=== PATIENT | female | born 1950 | race Caucasian/White ===

== ENCOUNTER 2016-10-18 08:39 | Outpatient (CLI) | payer MEDICARE ==
[2016-10-18 15:51] LABS: TOTAL PROTEIN 6.7 g/dL (6.0-8.5)
== END 2016-10-18 08:40 ==
LOC: LAB 08:39
PROVIDERS: ATTEND Family Medicine
DX: E11.9 Type 2 diabetes mellitus without complications (principal); E78.00 Pure hypercholesterolemia, unspecified; I10 Essential (primary) hypertension
CPT/HCPCS: 36415; 80053; 80061; 83036

== ENCOUNTER 2017-01-11 13:35 | Outpatient (CLI) | payer MEDICARE, MEDICAID | END 2017-01-11 13:36 | LOC: CARD 13:35 | PROVIDERS: ATTEND Internal Medicine Cardiovascular Disease | DX: I25.10 Atherosclerotic heart disease of native coronary artery without angina pectoris (principal); E11.9 Type 2 diabetes mellitus without complications; E66.9 Obesity, unspecified; E78.5 Hyperlipidemia, unspecified; I10 Essential (primary) hypertension; F17.200 Nicotine dependence, unspecified, uncomplicated; G47.30 Sleep apnea, unspecified | CPT/HCPCS: G0463 ==

== ENCOUNTER 2017-04-20 11:31 | Outpatient (CLI) | payer MEDICARE ==
--- NOTE | 2017-04-20 14:43 | Diagnostic Imaging Report ---
RADHIKA CHAVEZ [facility] [address] [facility] [address] [address] Report Submission Date: Apr 20, 2017 12:07:26 PM CDT Patient Study Name: RUCHI CHASE Date: Apr 20, 2017 11:34:47 AM CDT Modality Type: CR Gender: F Description: SPINE : 50 Institution: [facility] Physician: RADHIKA CHAVEZ Examination: Plain film lumbar spine History: Back discomfort Findings: 5 views of the lumbar spine demonstrate normal height. No anterior compression. Mild listhesis of L4 on L5: 5%. L5/S1 disc space narrowing. Facet degenerative changes. No pars defect on oblique views. Atherosclerotic disease involving the abdominal aorta and iliac vessels. Impression: Degenerative changes and listhesis. No compression deformity. If patient is experiencing neurologic symptoms, consider obtaining MRI. Electronically signed on Apr 20, 2017 12:07:26 PM CDT by: Roland MADERA
== END 2017-04-20 11:40 ==
LOC: RAD 11:31
PROVIDERS: ATTEND Family Medicine
DX: G89.29 Other chronic pain (principal); M54.5 Low back pain
CPT/HCPCS: 72110

== ENCOUNTER 2017-07-26 09:12 | Outpatient (CLI) | payer MEDICARE | END 2017-07-26 09:13 | LOC: CARD 09:12 | PROVIDERS: ATTEND Internal Medicine Cardiovascular Disease | DX: I25.10 Atherosclerotic heart disease of native coronary artery without angina pectoris (principal); R07.9 Chest pain, unspecified; R05 Cough; E11.9 Type 2 diabetes mellitus without complications; E66.9 Obesity, unspecified; I10 Essential (primary) hypertension; E78.5 Hyperlipidemia, unspecified; Z72.0 Tobacco use; G47.30 Sleep apnea, unspecified | CPT/HCPCS: G0463 ==

== ENCOUNTER 2017-10-20 10:09 | Outpatient (CLI) | payer MEDICARE ==
[2017-10-20 11:04] LABS: eGFR (African) > 60; eGFR (Non-African) > 60
== END 2017-10-20 10:10 ==
LOC: LAB 10:09
PROVIDERS: ATTEND Family Medicine
DX: E78.00 Pure hypercholesterolemia, unspecified (principal); E11.9 Type 2 diabetes mellitus without complications; E87.6 Hypokalemia; I10 Essential (primary) hypertension
CPT/HCPCS: 36415; 80053; 80061; 83036

== ENCOUNTER 2018-03-07 10:38 | Outpatient (CLI) | payer MEDICARE ==
[2018-03-07] MEDS ORDERED: WATER FOR INJECTION,STERILE 100 ML VIAL IJ ONE (11:00)
[2018-03-07] MEDS ORDERED: Lidocaine 1% 5ml(IM or SUTURE)(PAIN CLINIC) ONE (11:00)
[2018-03-07] MEDS ORDERED: TRIAMCINOLONE ACETONID 40MG/ML VIAL ONE (11:00)
--- NOTE | 2018-03-10 14:57 | HISTORY AND PHYSICAL REPORT ---
REFERRING PHYSICIAN: Dr. Ke Hernández Dear Dr. Hernández: HISTORY OF PRESENT ILLNESS: I had the opportunity of seeing Joleen Alonso today as an outpatient at [facility]. As you are aware, this is a delightful 67-year-old white female with a greater than 5-year history of back and leg pain. She tells me the symptoms can be in either leg, but at this point, are worse on the right. She has symptoms of neurogenic claudication and spinal stenosis. She says that she has had nonsteroidal anti-inflammatory medication. She has had physical therapy in the past and has had a previous history of chiropractic manipulation. 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 She tells me that she has to bend over a shopping cart or she rides a motorized cart at the grocery store and that she cannot ambulate more than 50 feet without having to sit down because she feels that her feet and legs are not going to hold her up. PAST MEDICAL HISTORY: 1. History of vision problems. 2. Hearing loss. 3. Nose or sinus problems. 4. Depression. 5. Anxiety. 6. Frequent headaches. 7. Diabetes. 8. Thyroid disease. 9. Acid reflux. 10. Osteoarthritis. 11. Tremors. PAST SURGICAL HISTORY: 1. Hysterectomy. 2. Bladder sling. 3. Bilateral total knee replacements. 4. Cholecystectomy. CURRENT DAILY MEDICATIONS: 1. Potassium chloride 10 mEq t.i.d. 2. NovoLog per sliding scale. 3. Levemir 55 units at bedtime. 4. Citalopram 40 mg daily. 5. Levothyroxine 100 mcg daily. 6. ProAir inhaler 90 mcg p.r.n. 7. Glipizide 10 mg b.i.d. 8. Atorvastatin 80 mg at bedtime. 9. Atenolol/chlorthalidone 50/25 mg daily. 10. Isosorbide 30 mg daily. 11. Aspirin 81 mg daily. 12. Celebrex 200 mg daily. ALLERGIES: 1. Zithromax. 2. Paper tape. SOCIAL HISTORY: She is a current 9-awxl-fzw-day smoker. She drinks alcohol socially at approximately once per year. Denies reactional drugs. She is a since 1995. She has 2 children. She lives at home with her significant other. She completed some college. She is not currently employed. She is retired. She is disabled due to chronic knee pain. FAMILY HISTORY: Family history includes her father with a stroke. Mother with stroke, heart attack, and thyroid disease. REVIEW OF SYSTEMS: In the last month or so, she reports a weight gain, night sweats, sinus infection, swelling in hands and feet, a cough or cold, feeling depressed, feeling anxious, and headaches. Pain is worsened with lying down, standing, bending, walking, twisting, getting up in the morning or in any position for too long. Pain is improved with sitting. PHYSICAL EXAMINATION: Vital Signs: BP: 120/64, P: 70, R: 18, oxygen saturation is 96% on room air. General: The patient is well nourished, well developed, and in no apparent distress. Awake, alert, and oriented. HEENT: Pupils are equal, round, and reactive to light and accommodation. Extraocular movements intact. No facial droop. Neck: There is full range of motion of the cervical spine. No evidence of adenopathy. Thyroid is nontender, not enlarged. Carotids are without bruits. Chest: Clear to auscultation bilaterally. Normal chest excursion. Heart: Regular rate and rhythm without murmur. Abdomen: Benign. Normoactive bowel sounds. Motor/sensory: Intact in the upper and lower extremities. Moves all extremities freely. Extremities: Strength is 5/5 and equal in her lower extremities. Reflexes are 2+ and equal. Dorsiflexion and plantar flexion of the feet are intact. DIAGNOSTIC STUDIES: MRI dated 02-22-18 reveals multi-level spondylosis throughout the lumbar spine and lumbar spinal stenosis with lateral recess stenosis at L4-L5. She has a broad-based disc protrusion at L5-S1 resulting in neuroforaminal stenosis, worse on the left than on the right. Otherwise, the remainder of the canal does not appear to have any narrowing. ASSESSMENT: Symptoms of spinal stenosis and neurogenic claudication worse at L5-S1. PLAN: Plan for a lumbar epidural steroid injection today under fluoroscopic guidance. Dr. Hernández, thank you very much for allowing me to take part in the care of this nice lady. I appreciate the opportunity to take part in the care of your patients. cc: Dr. Ke Hernández MTDD
--- NOTE | 2018-03-10 15:05 | LESI WITH FLUORO ---
OPERATIVE PROCEDURE: Left L5-S1 epidural steroid injection with fluoroscopic guidance. DESCRIPTION OF PROCEDURE: The risks and benefits were discussed with the patient including the risk of infection, bleeding, nerve injury, and headache, as well as the risks of steroid exposure causing hyperglycemia, hypertension, osteoporosis, or increased infectious risks. The patient understood these risks and agreed to proceed. Consent was obtained prior to the procedure. The patient was placed in the prone position on the fluoroscopy table with a pillow underneath the abdomen to afford anterior flexion of the lumbar spine. The low back was cleaned and a sterile drape was applied. An epidural needle was advanced with normal saline loss of resistance technique and direct fluoroscopic guidance with a left paramedian approach at the L5-S1 level. On obtaining loss of resistance to normal saline, it was verified that there was no aspiration of CSF or blood. Furthermore, the needle tip location was verified with lateral and AP fluoroscopic views. Omnipaque 240 myelogram dye were injected through the epidural needle. The distribution of the dye was noted to be within the desired distribution within the lumbar epidural space. The medication was injected into the epidural space. The stylet was replaced in the needle and the needle was removed from the back. The patient tolerated the procedure well. The back was cleaned and a bandage was applied over the injection site. The patient was monitored for 20 minutes following the procedure. during this time the vital signs remained stable and the patient experienced no adverse sequelae. The patient was discharged in good condition. ASSESSMENT: Symptoms of spinal stenosis and neurogenic claudication worse at L5-S1. PLAN: Left L5-S1 epidural steroid injection with fluoroscopic guidance today. FOLLOWUP: Return to clinic if problems develop or worsen. cc: Dr. Ke MADERA
== END 2018-03-07 10:40 ==
LOC: OUT 10:38
PROVIDERS: ATTEND Anesthesiology Pain Medicine
DX: M48.062 Spinal stenosis, lumbar region with neurogenic claudication (principal)
CPT/HCPCS: J3301; Q9966; 62323; 99213; G0463

== ENCOUNTER 2018-07-04 08:43 | Outpatient (CLI) | payer MEDICARE ==
[~2018-07-04 08:43] MED LIST: 0.9 % SODIUM CHLORIDE PF 10 ML VIAL IJ ONE; LIDOCAINE HCL/PF 2% 100 MG/5 ML VIAL IJ ONE; TRIAMCINOLONE ACETONID 40MG/ML VIAL ONE
--- NOTE | 2018-07-05 09:58 | LESI WITH FLUORO ---
SUBJECTIVE: Mrs. Alonso follows up with return of low back pain. She had an epidural steroid injection placed in March and she had immediate 100% relief which lasted she said several weeks, but after a week, she had a fall from a step where she stepped off and said she hurt her back. She has had return of back pain, worse on the left than on the right. I re-examined her and reviewed her MRI and she has positive assisted extension and extension rotation findings. She has a positive straight leg raise on the left. She has subarticular stenosis at L4-L5 and otherwise, some spondylosis of the facet joints at L3-L4, L4-L5, and L5-S1. At this point, I have explained I would repeat the epidural steroid injection and follow her up and if her symptoms are not resolved, I would consider diagnostic facet medial branch blocks. OPERATIVE PROCEDURE: Left L5-S1 epidural steroid injection with fluoroscopic guidance. DESCRIPTION OF PROCEDURE: The risks and benefits were discussed with the patient including the risk of infection, bleeding, nerve injury, and headache, as well as the risks of steroid exposure causing hyperglycemia, hypertension, osteoporosis, or increased infectious risks. The patient understood these risks and agreed to proceed. Consent was obtained prior to the procedure. The patient was placed in the prone position on the fluoroscopy table with a pillow underneath the abdomen to afford anterior flexion of the lumbar spine. The low back was cleaned and a sterile drape was applied. An epidural needle was advanced with normal saline loss of resistance technique and direct fluoroscopic guidance with a left paramedian approach at the L5-S1 level. On obtaining loss of resistance to normal saline, it was verified that there was no aspiration of CSF or blood. Furthermore, the needle tip location was verified with lateral and AP fluoroscopic views. Omnipaque 240 myelogram dye was injected through the epidural needle. The distribution of the dye was noted to be within the desired distribution within the lumbar epidural space. The medication was injected into the epidural space. The stylet was replaced in the needle and the needle was removed from the back. The patient tolerated the procedure well. The back was cleaned and a bandage was applied over the injection site. The patient was monitored for 20 minutes following the procedure. during this time the vital signs remained stable and the patient experienced no adverse sequelae. The patient was discharged in good condition. ASSESSMENT: 1. Subarticular L4-L5 stenosis with left-sided radicular pain. 2. Lumbar spondylosis. PLAN: Left L5-S1 epidural steroid injection with fluoroscopic guidance today. FOLLOWUP: Return to clinic if problems develop or worsen. cc: Dr. Ke MADERA
== END 2018-07-04 08:45 ==
LOC: OUT 08:43
PROVIDERS: ATTEND Anesthesiology Pain Medicine
DX: M48.061 Spinal stenosis, lumbar region without neurogenic claudication (principal); M47.896 Other spondylosis, lumbar region; M54.5 Low back pain
CPT/HCPCS: J2001; J3301; 62323; 99213; G0463

== ENCOUNTER 2018-07-26 13:36 | Outpatient (CLI) | payer MEDICARE ==
--- NOTE | 2018-08-01 12:18 | OP Clinic Progress Note ---
REASON FOR VISIT: This pleasant 67-year-old lady is seen with an ulcer and a sore area on the right side of her tongue on the lateral aspect [id number]. This is an ulcerated area at the level of the mandibular 2nd molar. That site has a very sharp edge to it. I asked the patient if she sleeps on the right side predominantly and she acknowledged that she sleeps mostly on the right side. This point ulcer does not look malignant. It looks like a traumatic ulcer. I would tend NOT to biopsy that site. PLAN: I have asked her to see her dentist to see if she can get that corner rounded down and quite significantly. I stated that if after doing that, which she has agreed to, the ulcer area continues to bother her, she should return. Patient is in agreement with this. Additionally, I used a mirror so we could synchronize the above idea with her visualizing it and there is good accord in this regard. cc: Dr. Ke MADERA
== END 2018-07-26 13:38 ==
LOC: ENT 13:36
PROVIDERS: ATTEND Otolaryngology
DX: K14.0 Glossitis (principal)
CPT/HCPCS: 99212; G0463

== ENCOUNTER 2019-04-30 09:23 | Outpatient (CLI) | payer MEDICARE | END 2019-04-30 09:25 | LOC: LAB 09:23 | PROVIDERS: ATTEND Family Medicine | DX: E11.9 Type 2 diabetes mellitus without complications (principal) | CPT/HCPCS: 36415; 83036 ==

== ENCOUNTER 2019-07-25 17:35 | Emergency (ER) | payer MEDICARE ==
--- NOTE | 2019-07-25 17:57 | ED Physician Documentation ---
General Adult - HISTORIAN Historian: patient, spouse - HPI Stated Complaint: tingling all over Chief Complaint: General Adult Additional Information: Patient presents to ED with a 2 month history of tingling all over associated wi th generalized weakness and nausea. Patient states her first episode was about 2 months ago and lasted less than an hour. Over the past 2 month she has had 2- 3 more episodes. Today, however, she had 2 episodes in one day. She became concerned and came to the ED. She denies shortness of breath, chest pain, vomiting, abdominal pain, syncope or fever. Onset: days ago (60) Timing: gone now Severity: moderate - ROS CONST: denies: fever EYES/ENT: denies: problems with vision CVS/RESP: denies: chest pain, shortness of breath GI/: nausea. denies: abdominal pain MS/SKIN/LYMPH: denies: leg swelling NEURO/PSYCH: tingling - PAST HX Past History: none Other History: none Surgeries/Procedures: none Allergies/Adverse Reactions: Allergies Allergy/AdvReac Type Severity Reaction Status Date / Time azithromycin Allergy Unknown Verified 07/25/19 18:13 Home Medications: Ambulatory Orders Medication Instructions Recorded Aspirin [Lena] 81 mg PO DAILY 07/25/19 Atorvastatin Calcium 80 mg PO HS 07/25/19 Cyclobenzaprine HCl 100 mg PO HS 07/25/19 [Cyclobenzaprine HCl ER] Insulin Aspart [Novolog Flexpen] 07/25/19 Insulin Detemir (Nf) [Levemir 35 unit SQ AMHS 07/25/19 Flex-Pen (Nf)] - SOCIAL HX Smoking History: cigarettes Alcohol Use: none Drug Use: none - FAMILY HX Family History: No - REVIEWED ASSESSMENTS Nursing Assessment Reviewed: Yes Vitals Reviewed: Yes ED Results Lab/Radiology - Lab Results Lab Results: UA - negative for infection. - Radiology Radiology Impressions: Report Submission Date: Jul 25, 2019 7:10:07 PM [employer] Patient Study Name: RUCHI CHASE Date: Jul 25, 2019 6:39:48 PM [employer] Modality Type: DX Gender: F Description: CHEST 2VIEW : 50 Institution: [facility] Physician: MARY REYES Chest, PA and lateral History: Dizziness Findings: No infiltrate, effusion or pneumothorax is present. Heart size, mediastinum and pulmonary vascularity are normal. There is calcification in the thoracic aorta. Impression: No active pulmonary disease. Electronically signed on Jul 25, 2019 7:10:07 PM [employer] by: Nigel Mead Report Submission Date: Jul 25, 2019 6:36:25 PM [employer] Patient Study Name: RUCHI CHASE Date: Jul 25, 2019 6:10:32 PM [employer] Modality Type: CT\SR Gender: F Description: CT BRAIN W/O CONTRAST : 50 Institution: [facility] Physician: MARY REYES CT head without contrast History: Dizziness Technique: Images through the brain were obtained without contrast. Findings: No mass, midline shift, hydrocephalus or hemorrhage is present. The ventricles are normal. No extra-axial fluid collection is identified. Impression: Normal. Electronically signed on Jul 25, 2019 6:36:25 PM [employer] by: Nigel Mead - Orders Orders: ED Orders Category Date Time Status Continuous EKG monitoring Q30M Care 07/25/19 17:[address] IV Lock 1T Care 07/25/19 17:[address] BRAIN W/O CONTRAST Stat Exams 07/25/19 Ordered CBC/PLATELET/DIFF Routine Lab 07/25/19 Ordered CMP Routine Lab 07/25/19 Ordered NT BNP Stat Lab 07/25/19 Ordered TROPONIN I Stat Lab 07/25/19 Ordered EKG WITH COMPARISON Stat Ther 07/25/19 Ordered General Adult Physical Exam - PHYSICAL EXAM GENERAL APPEARANCE: no distress EENT: ALEX NECK: supple RESPIRATORY: no resp distress, chest non-tender, breath sounds normal CVS: reg rate & rhythm ABDOMEN: soft, normal bowel sounds, non-tender BACK: no CVA tenderness SKIN: warm/dry, normal color EXTREMITIES: non-tender, no edema NEURO: oriented X3, CN's nml as tested, motor nml, sensation nml, mood/affect nml Discharge Clincal Impression: Low TSH level, Tingling Referrals: Ke Hernández MD [Primary Care Provider] - 2 Days Additional Instructions: 1. Zofran every 8 hours as needed for nausea 2. Follow up with PCP within 1 week. Discuss thyroid medication adjustment and possible neurology referral 3. Return to ER for new or worsening symptoms Condition: Stable Disposition: 01 HOME, SELF-CARE Decision to Admit: NO Date of Decison to Admit: 07/25/19 Decision Time: 19:57
[2019-07-25 18:18] LABS: BASOPHILS % 0.5 % (0.0-1.5); NEUTROPHILS # 9.5 # k/uL (1.4-7.7)
--- NOTE | 2019-07-25 18:40 | Diagnostic Imaging Report ---
PATIENT MR#: [id number] PATIENT PATIENT NAME: RUCHI CHASE DATE OF : 1950 REFERRING PHYSICIAN: Renata Lewis EXAM DATE: 07/25/2019 ACCESSION NUMBER: [id number] EXAM DESCRIPTION: CT BRAIN W/O CONTRAST CT head without contrast History: Dizziness Technique: Images through the brain were obtained without contrast. Findings: No mass, midline shift, hydrocephalus or hemorrhage is present. The ventricles are normal. No extra-axial fluid collection is identified. Impression: Normal. Read by: Dr. Nigel Mead Transcribed by: Transcribed Date: Electronically signed by: Dr. Nigel Mead Date signed: 07/25/2019 6:39:55 PM
[2019-07-25 18:50] LABS: eGFR (Non-African) > 60
--- NOTE | 2019-07-25 19:15 | Diagnostic Imaging Report ---
PATIENT MR#: [id number] PATIENT PATIENT NAME: RUCHI CHASE DATE OF : 1950 REFERRING PHYSICIAN: Renata Lewis EXAM DATE: 07/25/2019 ACCESSION NUMBER: [id number] EXAM DESCRIPTION: CHEST 2VIEW Chest, PA and lateral History: Dizziness Findings: No infiltrate, effusion or pneumothorax is present. Heart size, mediastinum and pulmonary v ascularity are normal. There is calcification in the thoracic aorta. Impression: No active pulmonary disease. Read by: Dr. Nigel Mead Transcribed by: Transcribed Date: Electronically signed by: Dr. Nigel Mead Date signed: 07/25/2019 7:13:53 PM
[2019-07-25 20:52] VITALS: BP 93/44
[2019-07-26 06:15] LABS: APPEARANCE,URINE CLEAR (CLEAR); COLOR,URINE YELLOW (YELLOW)
[2019-07-26 06:16] LABS: OCCULT BLOOD,URINE NEGATIVE (NEGATIVE); PH URINE 5.5 (5.0 - 8.0); UROBILINOGEN URINE 0.2 Eu (0.2-1.0)
== END 2019-07-25 20:08 | disposition home or self-care (01) ==
LOC: ED 17:35
DX: R94.6 Abnormal results of thyroid function studies (principal); R20.2 Paresthesia of skin
CPT/HCPCS: 70450; 71046; 80053; 81002; 83880; 84439; 84443; 84481; 84484; 85025; 93005; 99282; S1016

== ENCOUNTER 2019-09-02 23:51 | Emergency (ER) | payer MEDICARE ==
--- NOTE | 2019-09-03 00:22 | ED Physician Documentation ---
General Adult - HISTORIAN Historian: patient - HPI Chief Complaint: General Adult Additional Information: 69 year old female presents to the ER with c/o dizziness that has been ongoing for 3 weeks; was seen in the ER on 07/25/19 for complete work up for "tingling" all over. Followed up with PCP and has an appointment with Cardiology in October. Asked what changed tonight that brought her to the ER and she said "usually she can get the dizziness to stop". She appears to be in no acute distress; now she is saying that she had some chest tightness that started earlier this evening; she continues to smoke > 1ppd; diabetes is uncontrolled- she eats whatever she wants; blood sugar this evening was > 200. She also c/o shortness of breath this evening when walking short distance. Onset: days ago Timing: better Severity: mild Modifying Factors: uncontrolled DM, smoker, poor diet, obesity - ROS CONST: no problems EYES/ENT: none CVS/RESP: chest pain, shortness of breath GI/: none MS/SKIN/LYMPH: none NEURO/PSYCH: dizziness - PAST HX Past History: COPD, other (Sleep apnea, hypothyroid) Other History: diabetes Type 2 Surgeries/Procedures: hysterectomy Immunizations: UTD Allergies/Adverse Reactions: Allergies Allergy/AdvReac Type Severity Reaction Status Date / Time azithromycin Allergy Unknown Verified 09/03/19 00:23 Home Medications: Ambulatory Orders Medication Instructions Recorded Aspirin [Lena] 81 mg PO DAILY 07/25/19 Atorvastatin Calcium 80 mg PO HS 07/25/19 Cyclobenzaprine HCl 100 mg PO HS 07/25/19 [Cyclobenzaprine HCl ER] Insulin Detemir (Nf) [Levemir 35 unit SQ AMHS 07/25/19 Flex-Pen (Nf)] Ondansetron HCl Rapdis [Zofran Odt] 4 mg PO Q8 PRN #15 tab 07/25/19 - SOCIAL HX Smoking History: greater than 1 pack/day Alcohol Use: none Drug Use: none - FAMILY HX Family History: No - VITAL SIGNS Vital Signs: Vital Signs Temp Pulse Resp BP Pulse Ox 93/44 07/25/19 20:38 - REVIEWED ASSESSMENTS Nursing Assessment Reviewed: Yes Vitals Reviewed: Yes Progress - Progress Progress: 03:45 patient feeling much better; feels ready to go home 2nd troponin unchanged ED Results Lab/Radiology - Radiology Radiology Impressions: PA and lateral chest Clinical history: Shortness of breath. Findings: Examination of the chest in PA and lateral views with comparison to examination of 07/25/2019 demonstrates lungs to be clear. Cardiovascular and mediastinal silhouettes are stable. The aorta is atherosclerotic. Bony thorax is intact. There is a fairly dense nodule overlying the left upper lung zone that is stable and likely calcified. Impression: 1. Aortic atherosclerosis. 2. No active disease. Electronically signed on Sep 03, 2019 1:10:38 AM AUTOMOTIVE MANAGER by: Tito Moon - Orders Orders: ED Orders Category Date Time Status Continuous EKG monitoring Q30M Care 09/03/19 00:18 Ordered Continuous Pulse Oximetry Q30M Care 09/03/19 00:[address] IV Lock 1T Care 09/03/19 00:18 Ordered CBC/PLATELET/DIFF Stat Lab 09/03/19 00:18 Ordered CKMB Stat Lab 09/03/19 00:18 Ordered CMP Stat Lab 09/03/19 00:18 Ordered CREATINE KINASE Stat Lab 09/03/19 00:18 Ordered TROPONIN I Stat Lab 09/03/19 00:18 Ordered EKG WITH COMPARISON Stat Ther 09/03/19 00:18 Ordered General Adult Physical Exam - PHYSICAL EXAM GENERAL APPEARANCE: no distress EENT: eye inspection normal, ENT inspection normal, pharynx normal, ALEX NECK: normal inspection RESPIRATORY: breath sounds normal CVS: heart sounds normal ABDOMEN: soft, normal bowel sounds SKIN: warm/dry, normal color EXTREMITIES: non-tender, normal range of motion NEURO: oriented X3, CN's nml as tested, motor nml, sensation nml, mood/affect nml, cognition normal Discharge Clincal Impression: Dizziness, Hyperglycemia, Hypokalemia Referrals: Ke Hernández MD [Primary Care Provider] - 2 Days Additional Instructions: Change positions slowly Increase water intake > 64 oz daily Stop smoking Increase protein and decrease carbs and sugars Follow up with PCP next week Condition: Good Disposition: 01 HOME, SELF-CARE Decision to Admit: NO Decision Time: 03:52
[2019-09-03] MEDS ORDERED: MECLIZINE HCL 25 MG TABLET PO ONE (01:08)
[2019-09-03] MEDS ORDERED: POTASSIUM CHLORIDE 20 MEQ TABLET.ER PO ONE (01:08)
--- NOTE | 2019-09-03 01:15 | Diagnostic Imaging Report ---
PATIENT MR#: [id number] PATIENT PATIENT NAME: RUCHI CHASE DATE OF : 1950 REFERRING PHYSICIAN: Melva Mistry EXAM DATE: 09/03/2019 ACCESSION NUMBER: [id number] EXAM DESCRIPTION: CHEST 2VIEW PA and lateral chest Clinical history: Shortness of breath. Findings: Examination of the chest in PA and lateral views with comparison to examination of 019 demonstrates lungs to be clear. Cardiovascular and mediastinal silhouettes are stable. The aorta is atherosclero tic. Bony thorax is intact. There is a fairly dense nodule overlying the left upper lung zone that is stable and like ly calcified. Impression: 1. Aortic atherosclerosis. 2. No active disease. Read by: Dr. Tito Moon Transcribed by: Transcribed Date: Electronically signed by: Dr. Tito Moon Date signed: 09/03/2019 1:14:41 AM
[2019-09-03 04:08] VITALS: BP 117/69
[2019-09-03 07:13] LABS: BASOPHILS % 0.8 % (0.0-1.5); NEUTROPHILS # 7.2 # k/uL (1.4-7.7); eGFR (Non-African) > 60
== END 2019-09-03 03:53 | disposition home or self-care (01) ==
LOC: ED 23:51
DX: E87.6 Hypokalemia (principal); R73.9 Hyperglycemia, unspecified; R42 Dizziness and giddiness
CPT/HCPCS: 71046; 80053; 82550; 82553; 84484; 85025; 93005; 99284; A9270; S1016